=== PATIENT | male | born 1955 ===

== ENCOUNTER 2022-08-18 05:19 | Day surgery (SDC) | payer OTHER ==
[~2022-08-18 05:19] MED LIST: GABAPENTIN400 MG PO; GLIMEPIRIDE4 M1 PO; LEVO-T50 MCG PO; LISINOPRIL-HCT1 EAC1 PO; MELATONIN10 MG PO; PROSCAR5 MG PO; TAMS0.4C PO; TOPROL XL25 M1 PO; ZOCOR20 MG PO
[2022-08-18] MEDS ORDERED: RECTICARE30 GM TOP (08:27)
[2022-08-18] MEDS ORDERED: PERCOCET 5-3251 EACH PO (08:27)
== END 2022-08-18 15:30 | disposition home or self-care (01) ==
LOC: CIR.AMB 05:19 → EDSTATUS 10:15 → SURG 10:15 → CIR.AMB 15:30
PROVIDERS: ATTEND Surgery
DX: K62.0 Anal polyp (principal); K63.5 Polyp of colon; I10 Essential (primary) hypertension; Z86.16 Personal history of COVID-19; E11.9 Type 2 diabetes mellitus without complications; E03.9 Hypothyroidism, unspecified; Z79.84 Long term (current) use of oral hypoglycemic drugs